=== PATIENT | female | born 1965 | race African-American/Black ===

== ENCOUNTER 2023-09-28 14:14 | Emergency (ER) | payer OTHER ==
[~2023-09-28] VITALS: Ht 175.3 cm; Wt 104.3 kg
[2023-09-28 14:22] VITALS: BP 139/89; PULSE 80; RESP 18; TEMP 98.3; O2SAT 98
[2023-09-28] MEDS: ONDANSETRON 4 MG ODT PO ONE ×2 (14:51→15:56)
[2023-09-28] MEDS: MORPHINE SULFATE 4 MG/ML SYR IM ONE ×2 (14:57→15:57)
[2023-09-28] MEDS ORDERED: HAL5 PO (15:18)
[2023-09-28] MEDS ORDERED: ONDA8TAB87 PO (15:18)
[2023-09-28] MEDS ORDERED: LORA-478 PO (15:18)
[2023-09-28] MEDS ORDERED: BEN50 PO (15:18)
[2023-09-28] MEDS ORDERED: CIPR500T4 PO (15:18)
[2023-09-28 16:05] VITALS: BP 139/89; PULSE 80; RESP 18; TEMP 98.3; O2SAT 98
== END 2023-09-28 16:05 | disposition home or self-care (01) ==
LOC: MED 14:14
DX: R10.84 Generalized abdominal pain (principal); R11.2 Nausea with vomiting, unspecified; R19.7 Diarrhea, unspecified; F31.9 Bipolar disorder, unspecified; Z98.890 Other specified postprocedural states; Z79.899 Other long term (current) drug therapy; Z88.6 Allergy status to analgesic agent; Z91.040 Latex allergy status
CPT/HCPCS: 81002; 96372; 99284; J2270; Q0162

== ENCOUNTER 2023-10-19 21:56 | Emergency (ER) | payer OTHER ==
[~2023-10-19] VITALS: Ht 175.3 cm; Wt 104.3 kg
[~2023-10-19 21:56] MED LIST: BEN50 PO; CIPR500T4 PO; HAL5 PO; LORA-478 PO; ONDA8TAB87 PO
[2023-10-19 22:23] VITALS: BP 149/78; PULSE 90; RESP 18; TEMP 97.6; O2SAT 99
[2023-10-19 23:44] LABS: BASOPHILS # (AUTO) 0.1 K/uL (0.00-0.22); BASOPHILS % (AUTO) 0.9 % (0.0-2.0); EOSINOPHILS # (AUTO) 0.1 K/uL (0-0.4); EOSINOPHILS % (AUTO) 2.1 % (0.0-4.0); HEMATOCRIT 37.1 % (36-48); HEMOGLOBIN 12.8 g/dL (12.0-16.0); LYMPHOCYTES # (AUTO) 3.4 K/uL (2.5-16.5); LYMPHOCYTES % (AUTO) 52.1 % (20.5-51.1); MEAN CORPUSCULAR HEMOGLOBIN 27 pg (27-31); MEAN CORPUSCULAR HGB CONC 35 g/dL (33-37); MEAN CORPUSCULAR VOLUME 78.2 fL (80-94); MONOCYTES # (AUTO) 0.5 K/uL (0.8-1.0); MONOCYTES % (AUTO) 8.2 % (1.7-9.3); NEUTROPHILS # (AUTO) 2.4 K/uL (1.8-7.7); NEUTROPHILS % (AUTO) 36.7 % (42.2-75.2); PLATELET COUNT (AUTO) 286 K/uL (140-450); RED BLOOD CELL COUNT(AUTO) 4.75 MIL/uL (4.20-5.40); RED CELL DISTRIBUTION WIDTH 17.2 % (11.6-13.7); WHITE BLOOD COUNT (AUTO) 6.5 K/uL (4.8-10.8)
[2023-10-19] MEDS: NACL 0.9% 1,000 ML IV ONE (23:44)
[2023-10-19] MEDS: MORPHINE SULFATE 4 MG/ML SYR IVP ONE (23:48)
[2023-10-19] MEDS ORDERED: ONDANSETRON 4 MG/2 ML VIAL ONE (23:52)
[2023-10-19 23:54] LABS: ANION GAP 12.2 (8-16); CALCIUM 9.3 mg/dL (8.5-10.1); CARBON DIOXIDE 28.3 mmol/L (21-32); CREATININE 0.8 mg/dL (0.6-1.3); POTASSIUM 3.5 mmol/L (3.5-5.1)
[2023-10-19] MEDS: ONDANSETRON 4 MG/2 ML VIAL IVP ONE (23:57)
[2023-10-19 23:58] LABS: ALBUMIN 3.7 g/dL (3.4-5.0); BILIRUBIN,DIRECT 0.1 mg/dL (0.0-0.3); TOTAL BILIRUBIN 0.3 mg/dL (0.0-1.0); TOTAL PROTEIN, SERUM 7.1 g/dL (6.4-8.2)
[2023-10-20 00:11] LABS: APPEARANCE,URINE SL CLOUDY (CLEAR); BILIRUBIN,URINE NEGATIVE (NEGATIVE); BLOOD, URINE NEGATIVE (NEGATIVE); COLOR,URINE YELLOW (YELLOW); LEUKOCYTE ESTERASE ,URINE TRACE (NEGATIVE); NITRITE, URINE NEGATIVE (NEGATIVE); PROTEIN,URINE NEGATIVE (NEGATIVE); UGLUCOSE NEGATIVE (NEGATIVE); UROBILINOGEN,URINE 0.2 EU/dL (0.2 - 1)
[2023-10-20 00:15] LABS: BACTERIA,URINE >30 (MANY) /HPF (None Seen); MUCUS,URINE 1+ /LPF (None Seen); RBC,URINE 0-5 /HPF (0-5); SQUAMOUS EPITHELIAL CELL,UR 0-3 (FEW) /LPF (0-3 (FEW))
[2023-10-20 01:23] VITALS: BP 120/76; PULSE 71; RESP 14
[2023-10-20] MEDS: ONDANSETRON 4 MG/2 ML VIAL IVP ONE (01:39)
[2023-10-20] MEDS: MORPHINE SULFATE 4 MG/ML SYR IVP ONE (01:39)
[2023-10-20] MEDS: metroNIDAZOLE 500 MG/NS PREMIX 100 ML IV ONE (02:05)
[2023-10-20] MEDS ORDERED: METOCLOPRAMIDE 10 MG/2 ML INJ VIAL ONE (02:10)
[2023-10-20] MEDS: METOCLOPRAMIDE 10 MG/2 ML INJ VIAL IVP ONE (02:17)
[2023-10-20 02:27] VITALS: O2SAT 95
[2023-10-20] MEDS: LORazepam 2 MG/ML VIAL IVP ONE (03:59)
[2023-10-20] MEDS ORDERED: METR-435 PO (04:26)
== END 2023-10-20 04:27 | disposition home or self-care (01) ==
LOC: MED 21:56
DX: S83.8X1A Sprain of other specified parts of right knee, initial encounter (principal); A09 Infectious gastroenteritis and colitis, unspecified; F31.9 Bipolar disorder, unspecified; Z79.899 Other long term (current) drug therapy; Z88.2 Allergy status to sulfonamides; Z79.82 Long term (current) use of aspirin; Z79.1 Long term (current) use of non-steroidal anti-inflammatories (NSAID); Z91.040 Latex allergy status; X58.XXXA Exposure to other specified factors, initial encounter; Y93.89 Activity, other specified; Y92.89 Other specified places as the place of occurrence of the external cause; Y99.8 Other external cause status
CPT/HCPCS: 36415; 73562; 74176; 80048; 80076; 81001; 82150; 83690; 85025; 87040; 87086; 96361; 96365; 96375; 96376; 99285; J2060; J2270; J2405; J2765; J3490; J7030

== ENCOUNTER 2023-12-24 16:34 | Emergency (ER) | payer OTHER ==
[~2023-12-24] VITALS: Ht 175.3 cm; Wt 113.4 kg
[~2023-12-24 16:34] MED LIST changes: +METR-435 PO
[2023-12-24 16:43] VITALS: BP 154/101; PULSE 105; RESP 20; TEMP 97.8; O2SAT 100
[2023-12-24 17:36] VITALS: BP 140/80; PULSE 102; RESP 20; TEMP 97.8; O2SAT 100
[2023-12-24 17:48] LABS: BASOPHILS # (AUTO) 0.1 K/uL (0.00-0.22); BASOPHILS % (AUTO) 1.2 % (0.0-2.0); EOSINOPHILS # (AUTO) 0.1 K/uL (0-0.4); HEMATOCRIT 39.3 % (36-48); HEMOGLOBIN 13.4 g/dL (12.0-16.0); LYMPHOCYTES # (AUTO) 4.2 K/uL (2.5-16.5); LYMPHOCYTES % (AUTO) 47.8 % (20.5-51.1); MEAN CORPUSCULAR HEMOGLOBIN 27 pg (27-31); MEAN CORPUSCULAR HGB CONC 34 g/dL (33-37); MEAN CORPUSCULAR VOLUME 78.8 fL (80-94); MONOCYTES # (AUTO) 0.7 K/uL (0.8-1.0); MONOCYTES % (AUTO) 8.1 % (1.7-9.3); NEUTROPHILS # (AUTO) 3.7 K/uL (1.8-7.7); NEUTROPHILS % (AUTO) 41.9 % (42.2-75.2); PLATELET COUNT (AUTO) 374 K/uL (140-450); RED BLOOD CELL COUNT(AUTO) 4.99 MIL/uL (4.20-5.40); RED CELL DISTRIBUTION WIDTH 17.6 % (11.6-13.7); WHITE BLOOD COUNT (AUTO) 8.8 K/uL (4.8-10.8)
[2023-12-24 18:07] LABS: ANION GAP 14.4 (8-16); CALCIUM 9.7 mg/dL (8.5-10.1); CARBON DIOXIDE 27.2 mmol/L (21-32); CREATININE 0.7 mg/dL (0.6-1.3); POTASSIUM 3.6 mmol/L (3.5-5.1)
[2023-12-24 18:11] LABS: BILIRUBIN,DIRECT 0.1 mg/dL (0.0-0.3); TOTAL BILIRUBIN 0.6 mg/dL (0.0-1.0)
[2023-12-24] MEDS: ONDANSETRON 4 MG/2 ML VIAL IVP ONE ×2 (18:32→19:58)
[2023-12-24] MEDS ORDERED: DICYCLOMINE HCL LIQUID 10 MG/5 ML UDC ONE (18:59)
[2023-12-24] MEDS ORDERED: ALUMINUM HYD/MAG/SIMETHICONE 30 ML UDC ONE (18:59)
[2023-12-24] MEDS: MORPHINE SULFATE 4 MG/ML SYR IVP ONE ×2 (19:04→20:44)
[2023-12-24] MEDS: LORazepam 1 MG TAB PO ONE (19:05)
[2023-12-24] MEDS: DICYCLOMINE HCL LIQUID 20 MG, ALUMINUM HYD/MAG/SIMETHICONE 30 ML, LIDOCAINE VISCOUS 2% ... PO ONE (19:10)
[2023-12-24] MEDS: PANTOPRAZOLE 40 MG INJ VIAL IVP ONE (19:17)
[2023-12-24 19:55] LABS: APPEARANCE,URINE CLEAR (CLEAR); BILIRUBIN,URINE NEGATIVE (NEGATIVE); BLOOD, URINE NEGATIVE (NEGATIVE); COLOR,URINE YELLOW (YELLOW); LEUKOCYTE ESTERASE ,URINE TRACE (NEGATIVE); NITRITE, URINE NEGATIVE (NEGATIVE); PROTEIN,URINE NEGATIVE (NEGATIVE); UGLUCOSE NEGATIVE (NEGATIVE); UROBILINOGEN,URINE 0.2 EU/dL (0.2 - 1)
[2023-12-24 20:05] LABS: BACTERIA,URINE FEW /HPF (None Seen); RBC,URINE 0-5 /HPF (0-5); SQUAMOUS EPITHELIAL CELL,UR 4-10 (MOD) /LPF (0-3 (FEW)); WBC,URINE 0-5 /HPF (0-5)
[2023-12-24] MEDS ORDERED: FAMO-90 PO (21:52)
[2023-12-24] MEDS ORDERED: CIPR500T4 PO (21:52)
[2023-12-24] MEDS ORDERED: MAG355OR2 PO (21:52)
== END 2023-12-24 22:08 | disposition home or self-care (01) ==
LOC: MED 16:34
DX: K20.90 Esophagitis, unspecified without bleeding (principal); N39.0 Urinary tract infection, site not specified; Z98.890 Other specified postprocedural states; Z79.1 Long term (current) use of non-steroidal anti-inflammatories (NSAID); Z79.2 Long term (current) use of antibiotics; Z79.899 Other long term (current) drug therapy; Z88.0 Allergy status to penicillin; Z88.6 Allergy status to analgesic agent; Z88.2 Allergy status to sulfonamides; Z91.040 Latex allergy status; Z88.8 Allergy status to other drugs, medicaments and biological substances
CPT/HCPCS: 36415; 74176; 80048; 80076; 81001; 81003; 83690; 85025; 96374; 96375; 96376; 99285; J2270; J2405; J2470